=== PATIENT | male | born 1955 | race Caucasian/White ===

== ENCOUNTER 2019-02-10 15:23 | Observation (INO) | payer BC, OTHER ==
--- NOTE | 2019-02-10 15:39 | ERPHSYRPT ---
- History of Present Illness Source: patient, family ( witnessed), EMS Exam Limitations: no limitations Timing/Duration: today, hour(s) (1 hr ago onset), intermittent, sudden Severity: mild (5), moderate (1) Modifying Factors: Improves With: rest Associated Symptoms: denies symptoms Hx Tetanus, Diphtheria Vaccination/Date Given: Yes Hx Influenza Vaccination/Date Given: No Hx Pneumococcal Vaccination/Date Given: No <PITER ROPER - Last Filed: 02/10/19 16:26> <SAHIL CORTEZ - Last Filed: 02/10/19 18:54> - History of Present Illness Time Seen by Provider: 02/10/19 15:30 Physician History: patient presents by EMS with hx of seizures x 6 during past hour; perla LOC x1 for 30 seconds; no incontinence today; no trauma; no seizure meds; first seizure one year ago at [facility] in [place]- sent to [facility] and home later; no further workup; had another seizure one week ago at home with incontinence then ; no headache; no injury; no fever or recent illness; no sob (PITER ROPER) Allergies/Adverse Reactions: No Known Drug Allergies Allergy (Verified 02/10/19 15:37) Home Medications: Atenolol 25 mg PO DAILY 02/10/19 [History] Duloxetine HCl [Cymbalta] 60 mg PO DAILY 02/10/19 [History] Fenofibrate 48 mg PO DAILY 02/10/19 [History] Finasteride 5 mg [Proscar 5 MG] 5 mg PO DAILY 02/10/19 [History] Gabapentin 600 mg PO BID 02/10/19 [History] Insulin Aspart [Novolog] 100 unit SQ DAILY 02/10/19 [History] Insulin Glargine,Hum.rec.anlog [Lantus] 100 unit SQ DAILY 02/10/19 [History] Meclizine HCl 25 mg [Antivert 25 mg] 25 mg PO DAILY 02/10/19 [History] Nortriptyline HCl [Pamelor] 30 mg PO HS 02/10/19 [History] Pravastatin Sodium 80 mg PO HS 02/10/19 [History] Varenicline Tartrate [Chantix] 1 mg PO BID 02/10/19 [History] - Review of Systems Constitutional: No Symptoms Eyes: No Symptoms Ears, Nose, & Throat: No Symptoms Respiratory: No Cough, No Dyspnea, No Wheezing Cardiac: No Chest Pain, No Palpitations, No Orthopnea Abdominal/Gastrointestinal: Diarrhea (chronic), No Abdominal Pain, No Nausea, No Vomiting Genitourinary Symptoms: No Dysuria, No Hematuria, No Incontinence Musculoskeletal: No Symptoms Skin: No Symptoms Neurological: Dizziness (chronic), Headache, Seizure, Vertigo (chroninc) Psychological: No Symptoms Endocrine: Polyuria, Polydipsia, Cold Intolerance Hematologic/Lymphatic: No Symptoms Immunological/Allergic: No Symptoms <JUDSONPITER - Last Filed: 02/10/19 16:26> - Past Medical History Pertinent Past Medical History: Yes Neurological History: Stroke, TIA ENT History: No Pertinent History Cardiac History: Coronary Artery Disease, High Cholesterol, Hypertension, Myocardial Infarction (NH) Respiratory History: No Pertinent History Endocrine Medical History: Diabetes Type I Musculoskeletal History: No Pertinent History GI Medical History: No Pertinent History History: No Pertinent History Psycho-Social History: Depression Male Reproductive Disorders: No Pertinent History - Past Surgical History Past Surgical History: No - Social History Smoking Status: Current every day smoker Exposure to second hand smoke: No Alcohol Use: None Drug Use: none Patient Lives Alone: No Significant Family History: diabetes, hypertension <JUDSONPITER - Last Filed: 02/10/19 16:26> - Physical Exam General Appearance: mild distress, alert, thin Eye Exam: PERRL/EOMI, eyes nml inspection, other (fundi benign), No photophobia Ears, Nose, Throat Exam: normal ENT inspection, TMs normal, pharynx normal, moist mucous membranes Neck Exam: normal inspection, non-tender, supple, full range of motion, No meningismus, No carotid bruit, No JVD Respiratory Exam: normal breath sounds, lungs clear, airway intact, No chest tenderness, No respiratory distress, No crackles/rales, No rhonchi, No wheezing Cardiovascular Exam: regular rate/rhythm, normal heart sounds, normal peripheral pulses, bradycardia, capillary refill 2-3 sec, No murmur, No edema Gastrointestinal/Abdomen Exam: soft, normal bowel sounds, No tenderness, No guarding, No rebound, No organomegaly Rectal Exam: deferred Back Exam: normal inspection, normal range of motion, No CVA tenderness, No vertebral tenderness, No rash Extremity Exam: normal inspection, normal range of motion, No pelvis stable, No doug's sign, No pedal edema Neurologic Exam: alert, oriented x 3, cooperative, bonbon dipper II-XII nml as tested, normal mood/affect, sensation nml, No motor deficits Skin Exam: normal color, warm, dry, No rash SpO2 Interpretation: normal SpO2: 98 O2 Delivery: Room Air <ROPERPITER MAYO - Last Filed: 02/10/19 16:26> - Nursing Vital Signs Nursing Vital Signs: Initial Vital Signs Temperature 97.5 F 02/10/19 15:24 Pulse Rate 58 L 02/10/19 15:24 Respiratory Rate 16 02/10/19 15:24 Blood Pressure 182/74 02/10/19 15:24 O2 Sat by Pulse Oximetry 99 02/10/19 15:24 Pain Scale Pain Intensity 0 - Course Nursing assessment & vital signs reviewed: Yes <ROPERPITER - Last Filed: 02/10/19 16:26> - Course EKG Interpreted by Me: RATE (60/min), Left [place] Deviation, NORMAL INTERVALS, NORMAL QRS, Non-specific ST Changes - Radiology Exams Chest X-ray Interpretation: Interpreted by me, Negative - CT Exams Head CT Interpretation: Tele-radiologist Report, Other (old CVA, no acute changes) <SAHIL CORTEZ - Last Filed: 02/10/19 18:54> Ordered Tests: Active Orders 24 hr Category Date Time Status Cover Seamer STAT Care 02/10/19 15:31 Active EKG-ER Only STAT Care 02/10/19 15:31 Active IV Insertion STAT Care 02/10/19 15:31 Active Pulse Oximetry (ED) STAT Care 02/10/19 15:31 Active Re-Check Vital Signs STAT Care 02/10/19 15:31 Active Seizure Precautions -SCCHED STAT Care 02/10/19 15:31 Active CHEST 1 VIEW (PORTABLE) Stat Exams 02/10/19 15:31 Completed HEAD WITHOUT CONTRAST [CT] Stat Exams 02/10/19 15:31 Completed CBC W DIFF Stat Lab 02/10/19 15:40 Completed CK-Creatinine Phosphokinase Stat Lab 02/10/19 16:49 Completed CMP Stat Lab 02/10/19 15:40 Completed ETHYL ALCOHOL Stat Lab 02/10/19 16:49 Completed Lactic Acid Stat Lab 02/10/19 15:45 Completed MAGNESIUM Stat Lab 02/10/19 16:48 Completed PROTIME WITH INR Stat Lab 02/10/19 16:49 Completed PTT Stat Lab 02/10/19 16:49 Completed TROPONIN Q3H Lab 02/10/19 17:00 Completed TROPONIN Q3H Lab 02/10/19 20:00 Ordered TROPONIN Q3H Lab 02/10/19 23:00 Ordered TROPONIN Q3H Lab 02/11/19 02:00 Ordered TROPONIN Q3H Lab 02/11/19 05:00 Ordered UA W/RFX UR CULTURE Stat Lab 02/10/19 17:30 Completed Urine Triage Profile Stat Lab 02/10/19 17:30 Completed Medication Summary Generic Name Dose Route Start Last Admin Trade Name Freq PRN Reason Stop Dose Admin Sodium Chloride 1,000 mls @ 100 mls/hr 02/10/19 15:45 02/10/19 16:16 Sodium Chloride 0.9% 1000 Ml IV 03/12/19 15:44 100 mls/hr .Q10H ZEINA Administration Discontinued Medications Generic Name Dose Route Start Last Admin Trade Name Freq PRN Reason Stop Dose Admin Levetiracetam 1,000 mg 02/10/19 18:35 02/10/19 18:46 Keppra 500 Mg PO 02/10/19 18:36 1,000 mg NOW ONE Administration Lab/Rad Data: Laboratory Result Diagrams 02/10/19 15:40 02/10/19 15:40 Laboratory Results 02/10/19 02/10/19 02/10/19 Range/Units 17:30 17:30 17:00 WBC (4.0-10.5) K/mm3 RBC (4.1-5.6) M/mm3 Hgb (12.5-18.0) gm/dl Hct (42-50) % MCV (78-100) fl MCH (26-32) pg MCHC (32-36) g/dl RDW (11.5-14.0) % Plt Count (150-450) K/mm3 MPV (6-9.5) fl Gran % (36.0-66.0) % Eos # (Auto) (0-0.5) Absolute Lymphs (auto) (1.0-4.6) Absolute Monos (auto) (0.0-1.3) Lymphocytes % (24.0-44.0) % Monocytes % (0.0-12.0) % Eosinophils % (0.00-5.0) % Basophils % (0.0-0.4) % Absolute Granulocytes (1.4-6.9) Basophils # (0-0.4) PT (8.83-12.87) SECONDS INR (0.8-3.0) APTT (24.1-36.1) SECONDS Sodium (137-145) mmol/L Potassium (3.5-5.1) mmol/L Chloride (98-107) mmol/L Carbon Dioxide (22-30) mmol/L Anion Gap (5-15) MEQ/L BUN (9-20) mg/dL Creatinine (0.66-1.25) mg/dL Estimated GFR ML/MIN Glucose (74-106) mg/dL Lactic Acid (0.4-2.0) Calcium (8.4-10.2) mg/dL Magnesium (1.6-2.3) mg/dL Total Bilirubin (0.2-1.3) mg/dL AST (17-59) U/L ALT (0-50) U/L Alkaline Phosphatase (38-126) U/L Creatine Kinase (55-170) U/L Troponin I < 0.012 (0.000-0.034) ng/mL Serum Total Protein (6.3-8.2) g/dL Albumin (3.5-5.0) g/dL Urine Color YELLOW (YELLOW) Urine Appearance CLEAR (CLEAR) Urine pH 5.0 (5-6) Ur Specific [place] 1.023 (1.005-1.025) Urine Protein 100 (Negative) Urine Ketones NEGATIVE (NEGATIVE) Urine Blood SMALL (0-5) Kei/ul Urine Nitrite NEGATIVE (NEGATIVE) Urine Bilirubin NEGATIVE (NEGATIVE) Urine Urobilinogen NEGATIVE (0-1) mg/dL Ur Leukocyte Esterase NEGATIVE (NEGATIVE) Urine WBC (Auto) 3-5 (0-5) /HPF Urine RBC (Auto) 3-5 (0-2) /HPF U Epithel Cells (Auto) NONE (FEW) /HPF Urine Bacteria (Auto) NONE (NEGATIVE) /HPF Urine Culture Reflexed NO (NO) Urine Glucose >=500 (NEGATIVE) mg/dL Urine Opiates Level NEGATIVE (NEGATIVE) Ur Methadone NEGATIVE (NEGATIVE) Urine Barbiturates NEGATIVE (NEGATIVE) Ur Phencyclidine (PCP) NEGATIVE (NEGATIVE) Urine Amphetamine NEGATIVE (NEGATIVE) U Benzodiazepine Level NEGATIVE (NEGATIVE) Urine Cocaine NEGATIVE (NEGATIVE) Urine Marijuana (THC) NEGATIVE (NEGATIVE) Ethyl Alcohol (0-10) mg/dL 02/10/19 02/10/19 02/10/19 Range/Units 16:49 16:49 16:48 WBC (4.0-10.5) K/mm3 RBC (4.1-5.6) M/mm3 Hgb (12.5-18.0) gm/dl Hct (42-50) % MCV (78-100) fl MCH (26-32) pg MCHC (32-36) g/dl RDW (11.5-14.0) % Plt Count (150-450) K/mm3 MPV (6-9.5) fl Gran % (36.0-66.0) % Eos # (Auto) (0-0.5) Absolute Lymphs (auto) (1.0-4.6) Absolute Monos (auto) (0.0-1.3) Lymphocytes % (24.0-44.0) % Monocytes % (0.0-12.0) % Eosinophils % (0.00-5.0) % Basophils % (0.0-0.4) % Absolute Granulocytes (1.4-6.9) Basophils # (0-0.4) PT 11.2 (8.83-12.87) SECONDS INR 0.99 (0.8-3.0) APTT 34.4 (24.1-36.1) SECONDS Sodium (137-145) mmol/L Potassium (3.5-5.1) mmol/L Chloride (98-107) mmol/L Carbon Dioxide (22-30) mmol/L Anion Gap (5-15) MEQ/L BUN (9-20) mg/dL Creatinine (0.66-1.25) mg/dL Estimated GFR ML/MIN Glucose (74-106) mg/dL Lactic Acid (0.4-2.0) Calcium (8.4-10.2) mg/dL Magnesium 1.9 (1.6-2.3) mg/dL Total Bilirubin (0.2-1.3) mg/dL AST (17-59) U/L ALT (0-50) U/L Alkaline Phosphatase (38-126) U/L Creatine Kinase 52 L (55-170) U/L Troponin I (0.000-0.034) ng/mL Serum Total Protein (6.3-8.2) g/dL Albumin (3.5-5.0) g/dL Urine Color (YELLOW) Urine Appearance (CLEAR) Urine pH (5-6) Ur Specific [place] (1.005-1.025) Urine Protein (Negative) Urine Ketones (NEGATIVE) Urine Blood (0-5) Kei/ul Urine Nitrite (NEGATIVE) Urine Bilirubin (NEGATIVE) Urine Urobilinogen (0-1) mg/dL Ur Leukocyte Esterase (NEGATIVE) Urine WBC (Auto) (0-5) /HPF Urine RBC (Auto) (0-2) /HPF U Epithel Cells (Auto) (FEW) /HPF Urine Bacteria (Auto) (NEGATIVE) /HPF Urine Culture Reflexed (NO) Urine Glucose (NEGATIVE) mg/dL Urine Opiates Level (NEGATIVE) Ur Methadone (NEGATIVE) Urine Barbiturates (NEGATIVE) Ur Phencyclidine (PCP) (NEGATIVE) Urine Amphetamine (NEGATIVE) U Benzodiazepine Level (NEGATIVE) Urine Cocaine (NEGATIVE) Urine Marijuana (THC) (NEGATIVE) Ethyl Alcohol < 10 (0-10) mg/dL 02/10/19 02/10/19 02/10/19 Range/Units 15:45 15:40 15:40 WBC 8.2 (4.0-10.5) K/mm3 RBC 5.48 (4.1-5.6) M/mm3 Hgb 16.8 (12.5-18.0) gm/dl Hct 48.3 (42-50) % MCV 88.1 (78-100) fl MCH 30.7 (26-32) pg MCHC 34.8 (32-36) g/dl RDW 12.6 (11.5-14.0) % Plt Count 198 (150-450) K/mm3 MPV 9.2 (6-9.5) fl Gran % 60.2 (36.0-66.0) % Eos # (Auto) 0.27 (0-0.5) Absolute Lymphs (auto) 2.33 (1.0-4.6) Absolute Monos (auto) 0.64 (0.0-1.3) Lymphocytes % 28.3 (24.0-44.0) % Monocytes % 7.8 (0.0-12.0) % Eosinophils % 3.3 (0.00-5.0) % Basophils % 0.4 (0.0-0.4) % Absolute Granulocytes 4.97 (1.4-6.9) Basophils # 0.03 (0-0.4) PT (8.83-12.87) SECONDS INR (0.8-3.0) APTT (24.1-36.1) SECONDS Sodium 138 (137-145) mmol/L Potassium 4.2 (3.5-5.1) mmol/L Chloride 104 (98-107) mmol/L Carbon Dioxide 26 (22-30) mmol/L Anion Gap 12.3 (5-15) MEQ/L BUN 28 H (9-20) mg/dL Creatinine 1.17 (0.66-1.25) mg/dL Estimated GFR > 60.0 ML/MIN Glucose 206 H (74-106) mg/dL Lactic Acid 0.8 (0.4-2.0) Calcium 9.1 (8.4-10.2) mg/dL Magnesium (1.6-2.3) mg/dL Total Bilirubin 0.70 (0.2-1.3) mg/dL AST 29 (17-59) U/L ALT 37 (0-50) U/L Alkaline Phosphatase 73 (38-126) U/L Creatine Kinase (55-170) U/L Troponin I (0.000-0.034) ng/mL Serum Total Protein 7.5 (6.3-8.2) g/dL Albumin 4.3 (3.5-5.0) g/dL Urine Color (YELLOW) Urine Appearance (CLEAR) Urine pH (5-6) Ur Specific [place] (1.005-1.025) Urine Protein (Negative) Urine Ketones (NEGATIVE) Urine Blood (0-5) Kei/ul Urine Nitrite (NEGATIVE) Urine Bilirubin (NEGATIVE) Urine Urobilinogen (0-1) mg/dL Ur Leukocyte Esterase (NEGATIVE) Urine WBC (Auto) (0-5) /HPF Urine RBC (Auto) (0-2) /HPF U Epithel Cells (Auto) (FEW) /HPF Urine Bacteria (Auto) (NEGATIVE) /HPF Urine Culture Reflexed (NO) Urine Glucose (NEGATIVE) mg/dL Urine Opiates Level (NEGATIVE) Ur Methadone (NEGATIVE) Urine Barbiturates (NEGATIVE) Ur Phencyclidine (PCP) (NEGATIVE) Urine Amphetamine (NEGATIVE) U Benzodiazepine Level (NEGATIVE) Urine Cocaine (NEGATIVE) Urine Marijuana (THC) (NEGATIVE) Ethyl Alcohol (0-10) mg/dL reviewed (PITER ROPER) - Progress Progress: improved (after CT), re-examined (after tests) Counseled pt/family regarding: lab results, diagnosis, need for follow-up, rad results <PITER ROPER - Last Filed: 02/10/19 16:26> - Progress Discussed with Dr.: Other (Allen) Will see patient in: hospital (observation) <SAHIL CORTEZ - Last Filed: 02/10/19 18:54> - Progress Progress Note: 02/10/19 15:43 FSBS 180 at scene, will get EKG; Head CT; check lab ; monitor and recheck; at bedsdie 02/10/19 16:[address]; no more seizures; lab ok with elevated BS; CT results pending; patient comfortable; at bedside 02/10/19 16:26 Dr Cortez will assume care; report given (PITER ROPER) 02/10/19 18:50 Pt remains seizure free, reviewed his results discussed with him and his , they preferred to be transferred to [place]. We called Dr Hernandez Neurologist in [place], discussed his case and findings, current condition in details, he believes he can be observed here, he suggested to start him on PO Keppra 1000 mg BID and outpatient neurology follow up and workup. We discussed this with Dr Villa, [employer] driver, she accepted him to be admitted for observation, aptient and his notified and agreed. He was given 1000 mg PO Keppra. (SAHIL CORTEZ) <PITER ROPER - Last Filed: 02/10/19 16:26> - Departure Departure Disposition: Observation Critical Care Time: No <SAHIL CORTEZ - Last Filed: 02/10/19 18:54> - Departure Clinical Impression: Seizures Condition: Stable Referrals: BLANCA VILLEGAS [ACTIVE STAFF] - Instructions: Seizures, Adult (DC)
[2019-02-10 15:47] LABS: BASOPHIL % 0.4 % (0.0-0.4); Basophil (Absolute #) 0.03 (0-0.4); Eosinophil % 3.3 % (0.00-5.0); Eosinophil (Absolute #) 0.27 (0-0.5); Granulocyte Absolute (ANC) 4.97 (1.4-6.9); Granulocytes % 60.2 % (36.0-66.0); Hematocrit 48.3 % (42-50); Hemoglobin 16.8 gm/dl (12.5-18.0); Lymphocyte (Absolute #) 2.33 (1.0-4.6); Lymphocytes % 28.3 % (24.0-44.0); Mean Cell Volume 88.1 fl (78-100); Mean Corpuscular Hemoglobin 30.7 pg (26-32); Mean Corpuscular Hgb Concent. 34.8 g/dl (32-36); Mean Platelet Volume 9.2 fl (6-9.5); Monocyte (Absolute #) 0.64 (0.0-1.3); Monocytes % 7.8 % (0.0-12.0); Platelet Count 198 K/mm3 (150-450); Red Blood Count 5.48 M/mm3 (4.1-5.6); Red Cell Distribution Width 12.6 % (11.5-14.0); White Blood Count 8.2 K/mm3 (4.0-10.5)
[2019-02-10 15:58] LABS: ALBUMIN 4.3 g/dL (3.5-5.0); ALKALINE PHOSPHATASE 73 U/L (38-126); ANION GAP 12.3 MEQ/L (5-15); BLOOD UREA NITROGEN 28 mg/dL (9-20); CHLORIDE 104 mmol/L (98-107); Calcium 9.1 mg/dL (8.4-10.2); Carbon Dioxide 26 mmol/L (22-30); Creatinine 1 1.17 mg/dL (0.66-1.25); Glucose 206 mg/dL (74-106); Potassium 4.2 mmol/L (3.5-5.1); SGOT/AST 29 U/L (17-59); SGPT/ALT 37 U/L (0-50); SODIUM 138 mmol/L (137-145); Total Protein 7.5 g/dL (6.3-8.2)
[2019-02-10] MEDS: Sodium Chloride 0.9% 1000 ML 1,000 ML IV SCH (16:16)
--- NOTE | 2019-02-10 16:43 | XRAY ---
Exam: CT of the head without IV contrast from 02/10/2019. Comparison: CT of the head without IV contrast from 11/14/2015. Indication: 64-year-old male had 6 seizures today, history of random seizures, no priors history of surgery, no known injury. Technique: Non-IV contrast axial images were obtained through the brain. Reconstructed coronal and sagittal images were created and reviewed. Findings: The ventricles appear of unremarkable size. No no focal mass effect or midline shift is seen. No acute intracranial bleed or abnormal extra-axial fluid collection is seen. I again note a focus of chronic encephalomalacia within the high posterior left parietal lobe near the vertex which is unchanged and believed to be due to an old infarct. No new low attenuation infarct is seen. The cortical sulci are mildly prominent in a diffuse manner representing no change. Structures of posterior fossa appear unremarkable. The calvarium of the skull appears intact without fracture. Some mucosal thickening is seen within the lower aspect of the frontal sinuses on each side of midline near the frontal-ethmoid recesses as well as the posterior left ethmoid sinus. There is also moderate chronic appearing peripheral mucoperiosteal thickening within the right maxillary sinus and minimal mucosal thickening within the medial aspect of the left maxillary sinus. There is also some mild mucosal thickening along the right margin of the sphenoid sinus. These findings are suggestive of chronic sinusitis. An air-fluid level is not seen within the paranasal sinuses.. There is again deviation of the nasal septum toward the left. The mastoid air cells are clear without effusion. The middle ear cavities appear grossly unremarkable. Impression: 1. 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 2. No acute intracranial bleed or other acute intracranial process is seen. 3. Findings consistent with chronic pansinusitis. No air-fluid levels are seen on the current study. These findings are essentially unchanged from 11/14/2015. 4. No acute skull fracture is seen.
--- NOTE | 2019-02-10 16:47 | XRAY ---
Exam: AP portable chest film from 02/10/2019. Comparison: None. Indication: Seizure, history of prior stroke. Findings: The film was obtained in a mildly lordotic projection. The heart size is normal. The leela and mediastinal structures appear unremarkable. There is a 7 mm nodule at the right lung base just above the dome of the right hemidiaphragm. I cannot tell whether or not this is calcified. Comparison with any prior chest films would be helpful, although I do not have access to prior chest films at this time. The remainder the lung kohler appears clear. No infiltrates, vascular congestion, pneumothorax, or pleural fluid is seen. No acute osseous process is seen. Impression: 1. 7 mm lung nodule at right lung base of indeterminate etiology. 2. No air space infiltrates to suggest pneumonia or other acute cardiopulmonary disease is seen.
[2019-02-10 17:05] LABS: INR 0.99 (0.8-3.0); PROTIME 11.2 SECONDS (8.83-12.87)
[2019-02-10 17:07] LABS: PTT 34.4 SECONDS (24.1-36.1)
[2019-02-10 17:13] LABS: CK-Creatinine Phosphokinase 52 U/L (55-170)
[2019-02-10 17:23] LABS: ETHYL ALCOHOL < 10 mg/dL (0-10)
[2019-02-10 18:03] LABS: Appearance CLEAR (CLEAR); Bilirubin NEGATIVE (NEGATIVE); Blood SMALL Ery/ul (0-5); Glucose >=500 mg/dL (NEGATIVE); Ketones NEGATIVE (NEGATIVE); Leukocyte Esterase NEGATIVE (NEGATIVE); Nitrite NEGATIVE (NEGATIVE); Protein,Urine Dip 100 (Negative); Specific Gravity 1.023 (1.005-1.025); Urobilinogen NEGATIVE mg/dL (0-1)
[2019-02-10 18:05] LABS: Amphetamine,Urine NEGATIVE (NEGATIVE); Barbiturate,Urine NEGATIVE (NEGATIVE); Benzodiazepine,Urine NEGATIVE (NEGATIVE); Cocaine,Urine NEGATIVE (NEGATIVE); Methadone,Urine NEGATIVE (NEGATIVE); Opiate,Urine NEGATIVE (NEGATIVE); PCP,Urine NEGATIVE (NEGATIVE); THC,Urine NEGATIVE (NEGATIVE)
[2019-02-10] MEDS ORDERED: KEPPRA 500 MG PO ONE (18:35)
[2019-02-10] MEDS ORDERED: TYLENOL 325 MG PO PRN (18:54)
[2019-02-10] MEDS ORDERED: Zofran 4 MG/2 ML VIAL IV PRN (18:54)
[2019-02-10] MEDS ORDERED: DUONEB 0.5-3 MG/3 ml Neb IH PRN (18:54)
[2019-02-10] MEDS ORDERED: NovoLOG Insulin SQ PRN (18:54)
[2019-02-10] MEDS ORDERED: Sodium Chloride 0.9% 1000 ML 1,000 ML IV SCH (19:00)
[2019-02-10] MEDS ORDERED: Ativan 2 MG/1 ML VIAL IV PRN (19:31)
[2019-02-10] MEDS ORDERED: PATIENT OWN MEDICATION PO SCH (22:00)
[2019-02-10] MEDS ORDERED: NORTRIPTYLINE HCL PO SCH (22:00)
[2019-02-10] MEDS ORDERED: Proscar 5 MG PO SCH (22:00)
[2019-02-10] MEDS ORDERED: Lantus Insulin SQ SCH (22:00)
[2019-02-10] MEDS ORDERED: Lantus Insulin ONE (22:47)
[2019-02-10] MEDS: KEPPRA 500 MG PO SCH (23:27)
[2019-02-10] MEDS: NEURONTIN 300 MG PO SCH (23:28)
[2019-02-11] MEDS ORDERED: NovoLOG Insulin SQ PRN (01:23)
[2019-02-11] MEDS: Sodium Chloride 0.9% 1000 ML 1,000 ML IV SCH (03:41)
[2019-02-11 06:29] LABS: BASOPHIL % 0.3 % (0.0-0.4); Basophil (Absolute #) 0.03 (0-0.4); Eosinophil (Absolute #) 0.27 (0-0.5); Granulocyte Absolute (ANC) 5.05 (1.4-6.9); Granulocytes % 55.9 % (36.0-66.0); Hematocrit 42.5 % (42-50); Hemoglobin 14.7 gm/dl (12.5-18.0); Lymphocytes % 32.1 % (24.0-44.0); Mean Cell Volume 89.3 fl (78-100); Mean Corpuscular Hemoglobin 30.9 pg (26-32); Mean Corpuscular Hgb Concent. 34.6 g/dl (32-36); Mean Platelet Volume 9.8 fl (6-9.5); Monocyte (Absolute #) 0.79 (0.0-1.3); Monocytes % 8.7 % (0.0-12.0); Platelet Count 183 K/mm3 (150-450); Red Blood Count 4.76 M/mm3 (4.1-5.6); Red Cell Distribution Width 12.6 % (11.5-14.0)
[2019-02-11 06:51] LABS: ALBUMIN 3.4 g/dL (3.5-5.0); ALKALINE PHOSPHATASE 73 U/L (38-126); ANION GAP 10.9 MEQ/L (5-15); BLOOD UREA NITROGEN 22 mg/dL (9-20); CHLORIDE 105 mmol/L (98-107); Calcium 8.9 mg/dL (8.4-10.2); Carbon Dioxide 24 mmol/L (22-30); Glucose 356 mg/dL (74-106); Potassium 3.8 mmol/L (3.5-5.1); SGOT/AST 17 U/L (17-59); SGPT/ALT 27 U/L (0-50); SODIUM 137 mmol/L (137-145); Total Protein 6.1 g/dL (6.3-8.2)
[2019-02-11 07:26] VITALS: BP 156/72; PULSE 72; O2SAT 94
[2019-02-11] MEDS ORDERED: Lantus Insulin SQ SCH (08:00)
--- NOTE | 2019-02-11 09:18 | PCM.SSS ---
History of Present Illness - Chief Complaint Chief Complaint: Seizures History of Present Illness: is a 64 year old male male pt of Dr. Randolph with PMhx DM, hyperlipidemia, chronic bilat LE pain who was admitted through ER with a seizure yesterday. He had apparently several sz; he remembers some of them. He said it started with "something going over you" prior to some generalized shaking. witnessed several seconds of shaking, then she saw him turn white and slump over (thinks this lasted seconds too). She called son who is EMT and they had him brought to ER. Apparently last year he [facility] He was taken to [facility] in [place] and sent home after eval. He was supposed to go to neurology but refused. Per ER note there was a sz 1 wk ago with incontinence. At the scene fasting BS was 180. In ER they discussed with Dr. Brown in [place], who advised starting po keppra and following up outpatient. However pt may need to f/u with the IN in [place]. Pt has been on chantix and been doing great per , no smoking x 3d! He is supposed to stop before a visit to their [place] in [place]. However he was told to stop the chantix as sz may be a side effect. - Review of Systems Respiratory: Cough (chronic prod) Musculoskeletal: Other (leg pain chronic) Neurological: Dizziness (daily detention), Seizure All Other Systems: Reviewed and Negative Medications & Allergies Home Medications: Home Medication List Atenolol 25 mg PO DAILY 02/10/19 [History Confirmed 02/10/19] Duloxetine HCl [Cymbalta] 60 mg PO DAILY 02/10/19 [History Confirmed 02/10/19] Fenofibrate 48 mg PO DAILY 02/10/19 [History Confirmed 02/10/19] Finasteride 5 mg [Proscar 5 MG] 5 mg PO HS 02/10/19 [History Confirmed ] Gabapentin 600 mg PO BID 02/10/19 [History Confirmed 02/10/19] Gabapentin [Neurontin] 200 mg PO LUNCH 02/10/19 [History Confirmed 02/10/19] Insulin Aspart [Novolog] 3 unit SQ AC 02/10/19 [History Confirmed 02/10/19] Insulin Glargine,Hum.rec.anlog [Lantus] 50 unit SQ BID 02/10/19 [History Confirmed 02/10/19] Meclizine HCl 25 mg [Antivert 25 mg] 25 mg PO TID 02/10/19 [History Confirmed 02/10/19] Nortriptyline HCl [Pamelor] 30 mg PO HS 02/10/19 [History Confirmed 02/10/19] [place]-3 Fatty Acids/Fish Oil [Fish Oil 1,000 mg Capsule] 1,000 mg PO BID [History Confirmed 02/10/19] Pravastatin Sodium 80 mg PO HS 02/10/19 [History Confirmed 02/10/19] Levetiracetam [Keppra 500 mg ] 1,000 mg PO BID #60 tablet 02/11/19 [Rx] Allergies/Adverse Reactions: Allergies Allergy/AdvReac Type Severity Reaction Status Date / Time No Known Drug Allergies Allergy Verified 02/10/19 15:37 - Past Medical History Past Medical History: Yes Neurological History: Seizures, Stroke, TIA ENT History: No Pertinent History Cardiac History: Coronary Artery Disease, High Cholesterol, Hypertension, Myocardial Infarction (OR) Respiratory History: No Pertinent History Endocrine Medical History: Diabetes Type II Musculoskelatal History: No Pertinent History GI Medical History: No Pertinent History History: No Pertinent History Pyscho-Social History: Depression Male Reproductive Disorders: No Pertinent History - Past Surgical History Past Surgical History: No Neuro Surgical History: No Pertinent History Respiratory Surgery: No Pertinent History, Lobectomy GI Surgical History: No Pertinent History Genitourinary Surgical Hx: No Pertinent History Musculskeletal Surgical Hx: No Pertinent History Male Surgical History: No Pertinent History Other Surgical History: cardiac cath - Social History Smoking Status: Current every day smoker How long have you smoked: 50 Exposure to second hand smoke: Yes Alcohol: None Drug Use: none Significant Family History: diabetes, hypertension - Physical Exam Vital Signs: Vital Signs - 24 hr Temp Pulse Resp BP Pulse Ox 02/11/19 07:25 97.8 F 72 18 156/72 94 L 02/11/19 04:00 97.6 F 63 20 142/63 97 02/11/19 00:00 98.7 F 76 18 171/75 97 07/22/19 22:13 96 02/10/19 22:09 68 16 96 02/10/19 20:13 97.0 F 60 16 178/79 98 02/10/19 18:45 97.5 F 61 16 162/96 98 02/10/19 17:47 60 16 174/83 98 02/10/19 16:33 97.5 F 60 16 158/101 97 02/10/19 16:26 98 02/10/19 16:18 97.6 F 59 L 18 158/101 98 02/10/19 15:24 97.5 F 58 L 16 182/74 99 General Appearance: no apparent distress, alert Neurologic Exam: oriented x 3, cooperative, sourcing consultant II-XII nml as tested Eye Exam: PERRL/EOMI, eyes nml inspection Ears, Nose, Throat Exam: pharynx normal, moist mucous membranes, No tonsillar exudate Neck Exam: normal inspection, non-tender, No lymphadenopathy Respiratory Exam: normal breath sounds, lungs clear, No crackles/rales, No rhonchi, No wheezing Cardiovascular Exam: regular rate/rhythm, normal heart sounds, No murmur Gastrointestinal/Abdomen Exam: soft, normal bowel sounds, No tenderness, No distention, No mass, No guarding, No rebound Back Exam: normal inspection, No rash Extremity Exam: normal inspection, No pedal edema, No swelling Skin Exam: normal color, warm, dry, No rash Results - Labs Lab/Micro Results: Lab Results-Last 24 Hours 02/10/19 02/10/19 02/10/19 Range/Units 15:40 15:40 15:45 WBC 8.2 (4.0-10.5) K/mm3 RBC 5.48 (4.1-5.6) M/mm3 Hgb 16.8 (12.5-18.0) gm/dl Hct 48.3 (42-50) % MCV 88.1 (78-100) fl MCH 30.7 (26-32) pg MCHC 34.8 (32-36) g/dl RDW 12.6 (11.5-14.0) % Plt Count 198 (150-450) K/mm3 MPV 9.2 (6-9.5) fl Gran % 60.2 (36.0-66.0) % Eos # (Auto) 0.27 (0-0.5) Absolute Lymphs (auto) 2.33 (1.0-4.6) Absolute Monos (auto) 0.64 (0.0-1.3) Lymphocytes % 28.3 (24.0-44.0) % Monocytes % 7.8 (0.0-12.0) % Eosinophils % 3.3 (0.00-5.0) % Basophils % 0.4 (0.0-0.4) % Absolute Granulocytes 4.97 (1.4-6.9) Basophils # 0.03 (0-0.4) PT (8.83-12.87) SECONDS INR (0.8-3.0) APTT (24.1-36.1) SECONDS Sodium 138 (137-145) mmol/L Potassium 4.2 (3.5-5.1) mmol/L Chloride 104 (98-107) mmol/L Carbon Dioxide 26 (22-30) mmol/L Anion Gap 12.3 (5-15) MEQ/L BUN 28 H (9-20) mg/dL Creatinine 1.17 (0.66-1.25) mg/dL Estimated GFR > 60.0 ML/MIN Glucose 206 H (74-106) mg/dL Lactic Acid 0.8 (0.4-2.0) Calcium 9.1 (8.4-10.2) mg/dL Magnesium (1.6-2.3) mg/dL Total Bilirubin 0.70 (0.2-1.3) mg/dL AST 29 (17-59) U/L ALT 37 (0-50) U/L Alkaline Phosphatase 73 (38-126) U/L Creatine Kinase (55-170) U/L Troponin I (0.000-0.034) ng/mL Serum Total Protein 7.5 (6.3-8.2) g/dL Albumin 4.3 (3.5-5.0) g/dL Urine Color (YELLOW) Urine Appearance (CLEAR) Urine pH (5-6) Ur Specific Cornish (1.005-1.025) Urine Protein (Negative) Urine Ketones (NEGATIVE) Urine Blood (0-5) Kei/ul Urine Nitrite (NEGATIVE) Urine Bilirubin (NEGATIVE) Urine Urobilinogen (0-1) mg/dL Ur Leukocyte Esterase (NEGATIVE) Urine WBC (Auto) (0-5) /HPF Urine RBC (Auto) (0-2) /HPF U Epithel Cells (Auto) (FEW) /HPF Urine Bacteria (Auto) (NEGATIVE) /HPF Urine Culture Reflexed (NO) Urine Glucose (NEGATIVE) mg/dL Urine Opiates Level (NEGATIVE) Ur Methadone (NEGATIVE) Urine Barbiturates (NEGATIVE) Ur Phencyclidine (PCP) (NEGATIVE) Urine Amphetamine (NEGATIVE) U Benzodiazepine Level (NEGATIVE) Urine Cocaine (NEGATIVE) Urine Marijuana (THC) (NEGATIVE) Ethyl Alcohol (0-10) mg/dL 02/10/19 02/10/19 02/10/19 Range/Units 16:48 16:49 16:49 WBC (4.0-10.5) K/mm3 RBC (4.1-5.6) M/mm3 Hgb (12.5-18.0) gm/dl Hct (42-50) % MCV (78-100) fl MCH (26-32) pg MCHC (32-36) g/dl RDW (11.5-14.0) % Plt Count (150-450) K/mm3 MPV (6-9.5) fl Gran % (36.0-66.0) % Eos # (Auto) (0-0.5) Absolute Lymphs (auto) (1.0-4.6) Absolute Monos (auto) (0.0-1.3) Lymphocytes % (24.0-44.0) % Monocytes % (0.0-12.0) % Eosinophils % (0.00-5.0) % Basophils % (0.0-0.4) % Absolute Granulocytes (1.4-6.9) Basophils # (0-0.4) PT 11.2 (8.83-12.87) SECONDS INR 0.99 (0.8-3.0) APTT 34.4 (24.1-36.1) SECONDS Sodium (137-145) mmol/L Potassium (3.5-5.1) mmol/L Chloride (98-107) mmol/L Carbon Dioxide (22-30) mmol/L Anion Gap (5-15) MEQ/L BUN (9-20) mg/dL Creatinine (0.66-1.25) mg/dL Estimated GFR ML/MIN Glucose (74-106) mg/dL Lactic Acid (0.4-2.0) Calcium (8.4-10.2) mg/dL Magnesium 1.9 (1.6-2.3) mg/dL Total Bilirubin (0.2-1.3) mg/dL AST (17-59) U/L ALT (0-50) U/L Alkaline Phosphatase (38-126) U/L Creatine Kinase 52 L (55-170) U/L Troponin I (0.000-0.034) ng/mL Serum Total Protein (6.3-8.2) g/dL Albumin (3.5-5.0) g/dL Urine Color (YELLOW) Urine Appearance (CLEAR) Urine pH (5-6) Ur Specific Cornish (1.005-1.025) Urine Protein (Negative) Urine Ketones (NEGATIVE) Urine Blood (0-5) Kei/ul Urine Nitrite (NEGATIVE) Urine Bilirubin (NEGATIVE) Urine Urobilinogen (0-1) mg/dL Ur Leukocyte Esterase (NEGATIVE) Urine WBC (Auto) (0-5) /HPF Urine RBC (Auto) (0-2) /HPF U Epithel Cells (Auto) (FEW) /HPF Urine Bacteria (Auto) (NEGATIVE) /HPF Urine Culture Reflexed (NO) Urine Glucose (NEGATIVE) mg/dL Urine Opiates Level (NEGATIVE) Ur Methadone (NEGATIVE) Urine Barbiturates (NEGATIVE) Ur Phencyclidine (PCP) (NEGATIVE) Urine Amphetamine (NEGATIVE) U Benzodiazepine Level (NEGATIVE) Urine Cocaine (NEGATIVE) Urine Marijuana (THC) (NEGATIVE) Ethyl Alcohol < 10 (0-10) mg/dL 02/10/19 02/10/19 02/10/19 Range/Units 17:00 17:30 17:30 WBC (4.0-10.5) K/mm3 RBC (4.1-5.6) M/mm3 Hgb (12.5-18.0) gm/dl Hct (42-50) % MCV (78-100) fl MCH (26-32) pg MCHC (32-36) g/dl RDW (11.5-14.0) % Plt Count (150-450) K/mm3 MPV (6-9.5) fl Gran % (36.0-66.0) % Eos # (Auto) (0-0.5) Absolute Lymphs (auto) (1.0-4.6) Absolute Monos (auto) (0.0-1.3) Lymphocytes % (24.0-44.0) % Monocytes % (0.0-12.0) % Eosinophils % (0.00-5.0) % Basophils % (0.0-0.4) % Absolute Granulocytes (1.4-6.9) Basophils # (0-0.4) PT (8.83-12.87) SECONDS INR (0.8-3.0) APTT (24.1-36.1) SECONDS Sodium (137-145) mmol/L Potassium (3.5-5.1) mmol/L Chloride (98-107) mmol/L Carbon Dioxide (22-30) mmol/L Anion Gap (5-15) MEQ/L BUN (9-20) mg/dL Creatinine (0.66-1.25) mg/dL Estimated GFR ML/MIN Glucose (74-106) mg/dL Lactic Acid (0.4-2.0) Calcium (8.4-10.2) mg/dL Magnesium (1.6-2.3) mg/dL Total Bilirubin (0.2-1.3) mg/dL AST (17-59) U/L ALT (0-50) U/L Alkaline Phosphatase (38-126) U/L Creatine Kinase (55-170) U/L Troponin I < 0.012 (0.000-0.034) ng/mL Serum Total Protein (6.3-8.2) g/dL Albumin (3.5-5.0) g/dL Urine Color YELLOW (YELLOW) Urine Appearance CLEAR (CLEAR) Urine pH 5.0 (5-6) Ur Specific Cornish 1.023 (1.005-1.025) Urine Protein 100 (Negative) Urine Ketones NEGATIVE (NEGATIVE) Urine Blood SMALL (0-5) Kei/ul Urine Nitrite NEGATIVE (NEGATIVE) Urine Bilirubin NEGATIVE (NEGATIVE) Urine Urobilinogen NEGATIVE (0-1) mg/dL Ur Leukocyte Esterase NEGATIVE (NEGATIVE) Urine WBC (Auto) 3-5 (0-5) /HPF Urine RBC (Auto) 3-5 (0-2) /HPF U Epithel Cells (Auto) NONE (FEW) /HPF Urine Bacteria (Auto) NONE (NEGATIVE) /HPF Urine Culture Reflexed NO (NO) Urine Glucose >=500 (NEGATIVE) mg/dL Urine Opiates Level NEGATIVE (NEGATIVE) Ur Methadone NEGATIVE (NEGATIVE) Urine Barbiturates NEGATIVE (NEGATIVE) Ur Phencyclidine (PCP) NEGATIVE (NEGATIVE) Urine Amphetamine NEGATIVE (NEGATIVE) U Benzodiazepine Level NEGATIVE (NEGATIVE) Urine Cocaine NEGATIVE (NEGATIVE) Urine Marijuana (THC) NEGATIVE (NEGATIVE) Ethyl Alcohol (0-10) mg/dL 02/10/19 02/10/19 02/11/19 Range/Units 20:07 23:08 02:10 WBC (4.0-10.5) K/mm3 RBC (4.1-5.6) M/mm3 Hgb (12.5-18.0) gm/dl Hct (42-50) % MCV (78-100) fl MCH (26-32) pg MCHC (32-36) g/dl RDW (11.5-14.0) % Plt Count (150-450) K/mm3 MPV (6-9.5) fl Gran % (36.0-66.0) % Eos # (Auto) (0-0.5) Absolute Lymphs (auto) (1.0-4.6) Absolute Monos (auto) (0.0-1.3) Lymphocytes % (24.0-44.0) % Monocytes % (0.0-12.0) % Eosinophils % (0.00-5.0) % Basophils % (0.0-0.4) % Absolute Granulocytes (1.4-6.9) Basophils # (0-0.4) PT (8.83-12.87) SECONDS INR (0.8-3.0) APTT (24.1-36.1) SECONDS Sodium (137-145) mmol/L Potassium (3.5-5.1) mmol/L Chloride (98-107) mmol/L Carbon Dioxide (22-30) mmol/L Anion Gap (5-15) MEQ/L BUN (9-20) mg/dL Creatinine (0.66-1.25) mg/dL Estimated GFR ML/MIN Glucose (74-106) mg/dL Lactic Acid (0.4-2.0) Calcium (8.4-10.2) mg/dL Magnesium (1.6-2.3) mg/dL Total Bilirubin (0.2-1.3) mg/dL AST (17-59) U/L ALT (0-50) U/L Alkaline Phosphatase (38-126) U/L Creatine Kinase (55-170) U/L Troponin I < 0.012 < 0.012 < 0.012 (0.000-0.034) ng/mL Serum Total Protein (6.3-8.2) g/dL Albumin (3.5-5.0) g/dL Urine Color (YELLOW) Urine Appearance (CLEAR) Urine pH (5-6) Ur Specific Cornish (1.005-1.025) Urine Protein (Negative) Urine Ketones (NEGATIVE) Urine Blood (0-5) Kei/ul Urine Nitrite (NEGATIVE) Urine Bilirubin (NEGATIVE) Urine Urobilinogen (0-1) mg/dL Ur Leukocyte Esterase (NEGATIVE) Urine WBC (Auto) (0-5) /HPF Urine RBC (Auto) (0-2) /HPF U Epithel Cells (Auto) (FEW) /HPF Urine Bacteria (Auto) (NEGATIVE) /HPF Urine Culture Reflexed (NO) Urine Glucose (NEGATIVE) mg/dL Urine Opiates Level (NEGATIVE) Ur Methadone (NEGATIVE) Urine Barbiturates (NEGATIVE) Ur Phencyclidine (PCP) (NEGATIVE) Urine Amphetamine (NEGATIVE) U Benzodiazepine Level (NEGATIVE) Urine Cocaine (NEGATIVE) Urine Marijuana (THC) (NEGATIVE) Ethyl Alcohol (0-10) mg/dL 02/11/19 02/11/19 02/11/19 Range/Units 05:15 05:15 05:15 WBC 9.0 (4.0-10.5) K/mm3 RBC 4.76 (4.1-5.6) M/mm3 Hgb 14.7 (12.5-18.0) gm/dl Hct 42.5 (42-50) % MCV 89.3 (78-100) fl MCH 30.9 (26-32) pg MCHC 34.6 (32-36) g/dl RDW 12.6 (11.5-14.0) % Plt Count 183 (150-450) K/mm3 MPV 9.8 H (6-9.5) fl Gran % 55.9 (36.0-66.0) % Eos # (Auto) 0.27 (0-0.5) Absolute Lymphs (auto) 2.90 (1.0-4.6) Absolute Monos (auto) 0.79 (0.0-1.3) Lymphocytes % 32.1 (24.0-44.0) % Monocytes % 8.7 (0.0-12.0) % Eosinophils % 3.0 (0.00-5.0) % Basophils % 0.3 (0.0-0.4) % Absolute Granulocytes 5.05 (1.4-6.9) Basophils # 0.03 (0-0.4) PT (8.83-12.87) SECONDS INR (0.8-3.0) APTT (24.1-36.1) SECONDS Sodium 137 (137-145) mmol/L Potassium 3.8 (3.5-5.1) mmol/L Chloride 105 (98-107) mmol/L Carbon Dioxide 24 (22-30) mmol/L Anion Gap 10.9 (5-15) MEQ/L BUN 22 H (9-20) mg/dL Creatinine 1.20 (0.66-1.25) mg/dL Estimated GFR > 60.0 ML/MIN Glucose 356 H (74-106) mg/dL Lactic Acid (0.4-2.0) Calcium 8.9 (8.4-10.2) mg/dL Magnesium (1.6-2.3) mg/dL Total Bilirubin 0.40 (0.2-1.3) mg/dL AST 17 (17-59) U/L ALT 27 (0-50) U/L Alkaline Phosphatase 73 (38-126) U/L Creatine Kinase (55-170) U/L Troponin I < 0.012 (0.000-0.034) ng/mL Serum Total Protein 6.1 L (6.3-8.2) g/dL Albumin 3.4 L (3.5-5.0) g/dL Urine Color (YELLOW) Urine Appearance (CLEAR) Urine pH (5-6) Ur Specific Cornish (1.005-1.025) Urine Protein (Negative) Urine Ketones (NEGATIVE) Urine Blood (0-5) Kei/ul Urine Nitrite (NEGATIVE) Urine Bilirubin (NEGATIVE) Urine Urobilinogen (0-1) mg/dL Ur Leukocyte Esterase (NEGATIVE) Urine WBC (Auto) (0-5) /HPF Urine RBC (Auto) (0-2) /HPF U Epithel Cells (Auto) (FEW) /HPF Urine Bacteria (Auto) (NEGATIVE) /HPF Urine Culture Reflexed (NO) Urine Glucose (NEGATIVE) mg/dL Urine Opiates Level (NEGATIVE) Ur Methadone (NEGATIVE) Urine Barbiturates (NEGATIVE) Ur Phencyclidine (PCP) (NEGATIVE) Urine Amphetamine (NEGATIVE) U Benzodiazepine Level (NEGATIVE) Urine Cocaine (NEGATIVE) Urine Marijuana (THC) (NEGATIVE) Ethyl Alcohol (0-10) mg/dL - Radiology Impressions Radiology Exams & Impressions: Radiology Procedures Category Date Time Status CHEST 1 VIEW (PORTABLE) Stat Exams 02/10/19 15:31 Completed HEAD WITHOUT CONTRAST [CT] Stat Exams 02/10/19 15:31 Completed Assessment/Plan (1) Seizures Current Visit: Yes Status: Acute Assessment & Plan: Home on po keppra. Needs to f/u with neurology; since [facility], he is concerned he may need a f/u with the clinic in [place] or [place]. Discharge planning to f/u on that. Code(s): R56.9 - UNSPECIFIED CONVULSIONS (2) Diabetes mellitus Current Visit: Yes Status: Chronic Qualifiers: Diabetes mellitus type: type 2 Diabetes mellitus exterminator helper termite insulin use: with exterminator helper termite use Diabetes mellitus complication status: with neurologic complications Diabetes mellitus complication detail: with polyneuropathy Qualified Code(s): E11.42 - Type 2 diabetes mellitus with diabetic polyneuropathy; Z79.4 - superintendent marine oil terminal (current) use of insulin Code(s): E11.9 - TYPE 2 DIABETES MELLITUS WITHOUT COMPLICATIONS (3) Hyperlipidemia Current Visit: Yes Status: Chronic Qualifiers: Hyperlipidemia type: unspecified Qualified Code(s): E78.5 - Hyperlipidemia , unspecified Code(s): E78.5 - HYPERLIPIDEMIA, UNSPECIFIED (4) Chronic leg pain Current Visit: Yes Status: Chronic Qualifiers: Laterality: bilateral Qualified Code(s): M79.604 - Pain in right leg; M79.605 - Pain in left leg; G89.29 - Other chronic pain Code(s): M79.606 - PAIN IN LEG, UNSPECIFIED; G89.29 - OTHER CHRONIC PAIN Hospital Summary - Hospital Course Hospital Course: is a 64 year old male male pt of Dr. Randolph with PMhx DM, hyperlipidemia, chronic bilat LE pain who was admitted through ER with a seizure yesterday. He had apparently several sz; he remembers some of them. He said it started with "something going over you" prior to some generalized shaking. witnessed several seconds of shaking, then she saw him turn white and slump over (thinks this lasted seconds too). She called son who is EMT and they had him brought to ER. Apparently last year he had an [facility] He was taken to [facility] in [place] and sent home after eval. He was supposed to go to neurology but refused. Per ER note there was a sz 1 wk ago with incontinence. At the scene fasting BS was 180. In ER they discussed with Dr. Brown in [place], who advised starting po keppra and following up outpatient. However pt may need to f/u with the IN in [place]. Pt has been on chantix and been doing great per , no smoking x 3d! He is supposed to stop before a visit to their daughter in [place]. However he was told to stop the chantix as sz may be a side effect. - Vitals & Intake/Output Vital Signs: Vital Signs Temperature 97.8 F 02/11/19 07:25 Pulse Rate 72 02/11/19 07:25 Respiratory Rate 18 02/11/19 07:25 Blood Pressure 156/72 02/11/19 07:25 O2 Sat by Pulse Oximetry 94 L 02/11/19 07:25 Intake & Output: Intake & Output 02/08/19 02/09/19 02/10/19 02/11/19 11:59 11:59 11:59 11:59 Intake Total 900 Output Total 900 Balance 0 Weight 82.8 kg - Lab Result Diagrams: 02/11/19 05:15 02/11/19 05:15 Lab Results-Last 24 Hrs: Lab Results-Last 24 Hours 02/10/19 02/10/19 02/10/19 Range/Units 15:40 15:40 15:45 WBC 8.2 (4.0-10.5) K/mm3 RBC 5.48 (4.1-5.6) M/mm3 Hgb 16.8 (12.5-18.0) gm/dl Hct 48.3 (42-50) % MCV 88.1 (78-100) fl MCH 30.7 (26-32) pg MCHC 34.8 (32-36) g/dl RDW 12.6 (11.5-14.0) % Plt Count 198 (150-450) K/mm3 MPV 9.2 (6-9.5) fl Gran % 60.2 (36.0-66.0) % Eos # (Auto) 0.27 (0-0.5) Absolute Lymphs (auto) 2.33 (1.0-4.6) Absolute Monos (auto) 0.64 (0.0-1.3) Lymphocytes % 28.3 (24.0-44.0) % Monocytes % 7.8 (0.0-12.0) % Eosinophils % 3.3 (0.00-5.0) % Basophils % 0.4 (0.0-0.4) % Absolute Granulocytes 4.97 (1.4-6.9) Basophils # 0.03 (0-0.4) PT (8.83-12.87) SECONDS INR (0.8-3.0) APTT (24.1-36.1) SECONDS Sodium 138 (137-145) mmol/L Potassium 4.2 (3.5-5.1) mmol/L Chloride 104 (98-107) mmol/L Carbon Dioxide 26 (22-30) mmol/L Anion Gap 12.3 (5-15) MEQ/L BUN 28 H (9-20) mg/dL Creatinine 1.17 (0.66-1.25) mg/dL Estimated GFR > 60.0 ML/MIN Glucose 206 H (74-106) mg/dL Lactic Acid 0.8 (0.4-2.0) Calcium 9.1 (8.4-10.2) mg/dL Magnesium (1.6-2.3) mg/dL Total Bilirubin 0.70 (0.2-1.3) mg/dL AST 29 (17-59) U/L ALT 37 (0-50) U/L Alkaline Phosphatase 73 (38-126) U/L Creatine Kinase (55-170) U/L Troponin I (0.000-0.034) ng/mL Serum Total Protein 7.5 (6.3-8.2) g/dL Albumin 4.3 (3.5-5.0) g/dL Urine Color (YELLOW) Urine Appearance (CLEAR) Urine pH (5-6) Ur Specific Cornish (1.005-1.025) Urine Protein (Negative) Urine Ketones (NEGATIVE) Urine Blood (0-5) Kei/ul Urine Nitrite (NEGATIVE) Urine Bilirubin (NEGATIVE) Urine Urobilinogen (0-1) mg/dL Ur Leukocyte Esterase (NEGATIVE) Urine WBC (Auto) (0-5) /HPF Urine RBC (Auto) (0-2) /HPF U Epithel Cells (Auto) (FEW) /HPF Urine Bacteria (Auto) (NEGATIVE) /HPF Urine Culture Reflexed (NO) Urine Glucose (NEGATIVE) mg/dL Urine Opiates Level (NEGATIVE) Ur Methadone (NEGATIVE) Urine Barbiturates (NEGATIVE) Ur Phencyclidine (PCP) (NEGATIVE) Urine Amphetamine (NEGATIVE) U Benzodiazepine Level (NEGATIVE) Urine Cocaine (NEGATIVE) Urine Marijuana (THC) (NEGATIVE) Ethyl Alcohol (0-10) mg/dL 02/10/19 02/10/19 02/10/19 Range/Units 16:48 16:49 16:49 WBC (4.0-10.5) K/mm3 RBC (4.1-5.6) M/mm3 Hgb (12.5-18.0) gm/dl Hct (42-50) % MCV (78-100) fl MCH (26-32) pg MCHC (32-36) g/dl RDW (11.5-14.0) % Plt Count (150-450) K/mm3 MPV (6-9.5) fl Gran % (36.0-66.0) % Eos # (Auto) (0-0.5) Absolute Lymphs (auto) (1.0-4.6) Absolute Monos (auto) (0.0-1.3) Lymphocytes % (24.0-44.0) % Monocytes % (0.0-12.0) % Eosinophils % (0.00-5.0) % Basophils % (0.0-0.4) % Absolute Granulocytes (1.4-6.9) Basophils # (0-0.4) PT 11.2 (8.83-12.87) SECONDS INR 0.99 (0.8-3.0) APTT 34.4 (24.1-36.1) SECONDS Sodium (137-145) mmol/L Potassium (3.5-5.1) mmol/L Chloride (98-107) mmol/L Carbon Dioxide (22-30) mmol/L Anion Gap (5-15) MEQ/L BUN (9-20) mg/dL Creatinine (0.66-1.25) mg/dL Estimated GFR ML/MIN Glucose (74-106) mg/dL Lactic Acid (0.4-2.0) Calcium (8.4-10.2) mg/dL Magnesium 1.9 (1.6-2.3) mg/dL Total Bilirubin (0.2-1.3) mg/dL AST (17-59) U/L ALT (0-50) U/L Alkaline Phosphatase (38-126) U/L Creatine Kinase 52 L (55-170) U/L Troponin I (0.000-0.034) ng/mL Serum Total Protein (6.3-8.2) g/dL Albumin (3.5-5.0) g/dL Urine Color (YELLOW) Urine Appearance (CLEAR) Urine pH (5-6) Ur Specific Cornish (1.005-1.025) Urine Protein (Negative) Urine Ketones (NEGATIVE) Urine Blood (0-5) Kei/ul Urine Nitrite (NEGATIVE) Urine Bilirubin (NEGATIVE) Urine Urobilinogen (0-1) mg/dL Ur Leukocyte Esterase (NEGATIVE) Urine WBC (Auto) (0-5) /HPF Urine RBC (Auto) (0-2) /HPF U Epithel Cells (Auto) (FEW) /HPF Urine Bacteria (Auto) (NEGATIVE) /HPF Urine Culture Reflexed (NO) Urine Glucose (NEGATIVE) mg/dL Urine Opiates Level (NEGATIVE) Ur Methadone (NEGATIVE) Urine Barbiturates (NEGATIVE) Ur Phencyclidine (PCP) (NEGATIVE) Urine Amphetamine (NEGATIVE) U Benzodiazepine Level (NEGATIVE) Urine Cocaine (NEGATIVE) Urine Marijuana (THC) (NEGATIVE) Ethyl Alcohol < 10 (0-10) mg/dL 02/10/19 02/10/19 02/10/19 Range/Units 17:00 17:30 17:30 WBC (4.0-10.5) K/mm3 RBC (4.1-5.6) M/mm3 Hgb (12.5-18.0) gm/dl Hct (42-50) % MCV (78-100) fl MCH (26-32) pg MCHC (32-36) g/dl RDW (11.5-14.0) % Plt Count (150-450) K/mm3 MPV (6-9.5) fl Gran % (36.0-66.0) % Eos # (Auto) (0-0.5) Absolute Lymphs (auto) (1.0-4.6) Absolute Monos (auto) (0.0-1.3) Lymphocytes % (24.0-44.0) % Monocytes % (0.0-12.0) % Eosinophils % (0.00-5.0) % Basophils % (0.0-0.4) % Absolute Granulocytes (1.4-6.9) Basophils # (0-0.4) PT (8.83-12.87) SECONDS INR (0.8-3.0) APTT (24.1-36.1) SECONDS Sodium (137-145) mmol/L Potassium (3.5-5.1) mmol/L Chloride (98-107) mmol/L Carbon Dioxide (22-30) mmol/L Anion Gap (5-15) MEQ/L BUN (9-20) mg/dL Creatinine (0.66-1.25) mg/dL Estimated GFR ML/MIN Glucose (74-106) mg/dL Lactic Acid (0.4-2.0) Calcium (8.4-10.2) mg/dL Magnesium (1.6-2.3) mg/dL Total Bilirubin (0.2-1.3) mg/dL AST (17-59) U/L ALT (0-50) U/L Alkaline Phosphatase (38-126) U/L Creatine Kinase (55-170) U/L Troponin I < 0.012 (0.000-0.034) ng/mL Serum Total Protein (6.3-8.2) g/dL Albumin (3.5-5.0) g/dL Urine Color YELLOW (YELLOW) Urine Appearance CLEAR (CLEAR) Urine pH 5.0 (5-6) Ur Specific Cornish 1.023 (1.005-1.025) Urine Protein 100 (Negative) Urine Ketones NEGATIVE (NEGATIVE) Urine Blood SMALL (0-5) Kei/ul Urine Nitrite NEGATIVE (NEGATIVE) Urine Bilirubin NEGATIVE (NEGATIVE) Urine Urobilinogen NEGATIVE (0-1) mg/dL Ur Leukocyte Esterase NEGATIVE (NEGATIVE) Urine WBC (Auto) 3-5 (0-5) /HPF Urine RBC (Auto) 3-5 (0-2) /HPF U Epithel Cells (Auto) NONE (FEW) /HPF Urine Bacteria (Auto) NONE (NEGATIVE) /HPF Urine Culture Reflexed NO (NO) Urine Glucose >=500 (NEGATIVE) mg/dL Urine Opiates Level NEGATIVE (NEGATIVE) Ur Methadone NEGATIVE (NEGATIVE) Urine Barbiturates NEGATIVE (NEGATIVE) Ur Phencyclidine (PCP) NEGATIVE (NEGATIVE) Urine Amphetamine NEGATIVE (NEGATIVE) U Benzodiazepine Level NEGATIVE (NEGATIVE) Urine Cocaine NEGATIVE (NEGATIVE) Urine Marijuana (THC) NEGATIVE (NEGATIVE) Ethyl Alcohol (0-10) mg/dL 02/10/19 02/10/19 02/11/19 Range/Units 20:07 23:08 02:10 WBC (4.0-10.5) K/mm3 RBC (4.1-5.6) M/mm3 Hgb (12.5-18.0) gm/dl Hct (42-50) % MCV (78-100) fl MCH (26-32) pg MCHC (32-36) g/dl RDW (11.5-14.0) % Plt Count (150-450) K/mm3 MPV (6-9.5) fl Gran % (36.0-66.0) % Eos # (Auto) (0-0.5) Absolute Lymphs (auto) (1.0-4.6) Absolute Monos (auto) (0.0-1.3) Lymphocytes % (24.0-44.0) % Monocytes % (0.0-12.0) % Eosinophils % (0.00-5.0) % Basophils % (0.0-0.4) % Absolute Granulocytes (1.4-6.9) Basophils # (0-0.4) PT (8.83-12.87) SECONDS INR (0.8-3.0) APTT (24.1-36.1) SECONDS Sodium (137-145) mmol/L Potassium (3.5-5.1) mmol/L Chloride (98-107) mmol/L Carbon Dioxide (22-30) mmol/L Anion Gap (5-15) MEQ/L BUN (9-20) mg/dL Creatinine (0.66-1.25) mg/dL Estimated GFR ML/MIN Glucose (74-106) mg/dL Lactic Acid (0.4-2.0) Calcium (8.4-10.2) mg/dL Magnesium (1.6-2.3) mg/dL Total Bilirubin (0.2-1.3) mg/dL AST (17-59) U/L ALT (0-50) U/L Alkaline Phosphatase (38-126) U/L Creatine Kinase (55-170) U/L Troponin I < 0.012 < 0.012 < 0.012 (0.000-0.034) ng/mL Serum Total Protein (6.3-8.2) g/dL Albumin (3.5-5.0) g/dL Urine Color (YELLOW) Urine Appearance (CLEAR) Urine pH (5-6) Ur Specific [place] (1.005-1.025) Urine Protein (Negative) Urine Ketones (NEGATIVE) Urine Blood (0-5) Kei/ul Urine Nitrite (NEGATIVE) Urine Bilirubin (NEGATIVE) Urine Urobilinogen (0-1) mg/dL Ur Leukocyte Esterase (NEGATIVE) Urine WBC (Auto) (0-5) /HPF Urine RBC (Auto) (0-2) /HPF U Epithel Cells (Auto) (FEW) /HPF Urine Bacteria (Auto) (NEGATIVE) /HPF Urine Culture Reflexed (NO) Urine Glucose (NEGATIVE) mg/dL Urine Opiates Level (NEGATIVE) Ur Methadone (NEGATIVE) Urine Barbiturates (NEGATIVE) Ur Phencyclidine (PCP) (NEGATIVE) Urine Amphetamine (NEGATIVE) U Benzodiazepine Level (NEGATIVE) Urine Cocaine (NEGATIVE) Urine Marijuana (THC) (NEGATIVE) Ethyl Alcohol (0-10) mg/dL 02/11/19 02/11/19 02/11/19 Range/Units 05:15 05:15 05:15 WBC 9.0 (4.0-10.5) K/mm3 RBC 4.76 (4.1-5.6) M/mm3 Hgb 14.7 (12.5-18.0) gm/dl Hct 42.5 (42-50) % MCV 89.3 (78-100) fl MCH 30.9 (26-32) pg MCHC 34.6 (32-36) g/dl RDW 12.6 (11.5-14.0) % Plt Count 183 (150-450) K/mm3 MPV 9.8 H (6-9.5) fl Gran % 55.9 (36.0-66.0) % Eos # (Auto) 0.27 (0-0.5) Absolute Lymphs (auto) 2.90 (1.0-4.6) Absolute Monos (auto) 0.79 (0.0-1.3) Lymphocytes % 32.1 (24.0-44.0) % Monocytes % 8.7 (0.0-12.0) % Eosinophils % 3.0 (0.00-5.0) % Basophils % 0.3 (0.0-0.4) % Absolute Granulocytes 5.05 (1.4-6.9) Basophils # 0.03 (0-0.4) PT (8.83-12.87) SECONDS INR (0.8-3.0) APTT (24.1-36.1) SECONDS Sodium 137 (137-145) mmol/L Potassium 3.8 (3.5-5.1) mmol/L Chloride 105 (98-107) mmol/L Carbon Dioxide 24 (22-30) mmol/L Anion Gap 10.9 (5-15) MEQ/L BUN 22 H (9-20) mg/dL Creatinine 1.20 (0.66-1.25) mg/dL Estimated GFR > 60.0 ML/MIN Glucose 356 H (74-106) mg/dL Lactic Acid (0.4-2.0) Calcium 8.9 (8.4-10.2) mg/dL Magnesium (1.6-2.3) mg/dL Total Bilirubin 0.40 (0.2-1.3) mg/dL AST 17 (17-59) U/L ALT 27 (0-50) U/L Alkaline Phosphatase 73 (38-126) U/L Creatine Kinase (55-170) U/L Troponin I < 0.012 (0.000-0.034) ng/mL Serum Total Protein 6.1 L (6.3-8.2) g/dL Albumin 3.4 L (3.5-5.0) g/dL Urine Color (YELLOW) Urine Appearance (CLEAR) Urine pH (5-6) Ur Specific [place] (1.005-1.025) Urine Protein (Negative) Urine Ketones (NEGATIVE) Urine Blood (0-5) Kei/ul Urine Nitrite (NEGATIVE) Urine Bilirubin (NEGATIVE) Urine Urobilinogen (0-1) mg/dL Ur Leukocyte Esterase (NEGATIVE) Urine WBC (Auto) (0-5) /HPF Urine RBC (Auto) (0-2) /HPF U Epithel Cells (Auto) (FEW) /HPF Urine Bacteria (Auto) (NEGATIVE) /HPF Urine Culture Reflexed (NO) Urine Glucose (NEGATIVE) mg/dL Urine Opiates Level (NEGATIVE) Ur Methadone (NEGATIVE) Urine Barbiturates (NEGATIVE) Ur Phencyclidine (PCP) (NEGATIVE) Urine Amphetamine (NEGATIVE) U Benzodiazepine Level (NEGATIVE) Urine Cocaine (NEGATIVE) Urine Marijuana (THC) (NEGATIVE) Ethyl Alcohol (0-10) mg/dL - Radiology Exams Ordered Rad Exams-Entire Visit: Radiology Procedures Category Date Time Status CHEST 1 VIEW (PORTABLE) Stat Exams 02/10/19 15:31 Completed HEAD WITHOUT CONTRAST [CT] Stat Exams 02/10/19 15:31 Completed - Procedures and Test Procedures and Tests throughout Hospitalization: Therapy Orders & Screens 02/10/19 20:47 Smoking Cessation Education ONCE Comment: Diagnosis: Seizures Smoking Status: Current every day smoker How long have you smoked: 50 Have you smoked in the past 12 months: Yes Approximately how many cigarettes per day: 20 Do you dip or chew tobacco: No 02/10/19 22:09 Respiratory Therapy Consult ONCE Comment: Reason For Exam: Diagnosis: Seizures - Discharge Disposition: Home, Self-Care Condition: Stable Prescriptions: New Levetiracetam [Keppra 500 mg ] 1,000 mg PO BID #60 tablet Continue Duloxetine HCl [Cymbalta] 60 mg PO DAILY Fenofibrate 48 mg PO DAILY Atenolol 25 mg PO DAILY Pravastatin Sodium 80 mg PO HS Gabapentin 600 mg PO BID Insulin Aspart [Novolog] 3 unit SQ AC Finasteride 5 mg [Proscar 5 MG] 5 mg PO HS Nortriptyline HCl [Pamelor] 30 mg PO HS Insulin Glargine,Hum.rec.anlog [Lantus] 50 unit SQ BID Meclizine HCl 25 mg [Antivert 25 mg] 25 mg PO TID Gabapentin [Neurontin] 200 mg PO LUNCH [place]-3 Fatty Acids/Fish Oil [Fish Oil 1,000 mg Capsule] 1,000 mg PO BID Follow up with: [facility]OSP[facility],'[facility] [Primary Care Provider] - 1 Week
[2019-02-11] MEDS: KEPPRA 500 MG PO SCH (09:23)
[2019-02-11] MEDS: NEURONTIN 300 MG PO SCH (09:24)
[2019-02-11] MEDS ORDERED: TENORMIN 50 MG PO SCH (10:00)
[2019-02-11] MEDS ORDERED: Tricor 145 MG PO SCH (10:00)
[2019-02-11] MEDS ORDERED: Cymbalta 30 MG Capsule PO SCH (10:00)
[2019-02-11] MEDS ORDERED: ANTIVERT 25 MG PO PRN (10:00)
[2019-02-11] MEDS ORDERED: NON-FORMULARY ITEM (Duloxetine Hcl [Cymbalta] 60 MG) PO SCH (10:00)
[2019-02-11] MEDS ORDERED: PATIENT OWN MEDICATION PO SCH (10:00)
[2019-02-11] MEDS ORDERED: FENOFIBRATE 48 MG PO SCH (10:00)
[2019-02-11] MEDS ORDERED: Neurontin 100 MG PO SCH (12:00)
[2019-02-11] MEDS ORDERED: ZOCOR 20MG PO SCH (22:00)
== END 2019-02-11 10:05 | disposition home or self-care (01) ==
LOC: ED 15:23 → MED SURG 19:27
PROVIDERS: ADMIT Family Medicine; ATTEND Family Medicine
DX: R56.9 Unspecified convulsions (principal); E11.9 Type 2 diabetes mellitus without complications; E78.5 Hyperlipidemia, unspecified; R42 Dizziness and giddiness; I10 Essential (primary) hypertension; I25.10 Atherosclerotic heart disease of native coronary artery without angina pectoris; M79.605 Pain in left leg; M79.606 Pain in leg, unspecified; Z79.899 Other long term (current) drug therapy
CPT/HCPCS: 36000; 36415; 70450; 71045; 80053; 80307; 81001; 82550; 82962; 83036; 83605; 83735; 84484; 85025; 85610; 85730; 93005; 93041; 93268; 94760; 96360; 96361; 99285; G0378; G0480; A9270-GY

== ENCOUNTER 2019-08-20 10:43 | Emergency (ER) | payer OTHER ==
[2019-08-20 11:08] LABS: INR 0.96 (0.8-3.0); PROTIME 10.8 SECONDS (8.83-12.87)
[2019-08-20 11:09] LABS: Absolute Neutrophil Ct (ANC) 5.33 (1.4-6.9); BASOPHIL % 0.4 % (0.0-0.4); Basophil (Absolute #) 0.03 (0-0.4); Eosinophil % 3.7 % (0.00-5.0); Eosinophil (Absolute #) 0.31 (0-0.5); Hemoglobin 18.3 gm/dl (12.5-18.0); Lymphocytes % 24.2 % (24.0-44.0); Mean Corpuscular Hemoglobin 31.3 pg (26-32); Mean Corpuscular Hgb Concent. 35.2 g/dl (32-36); Mean Platelet Volume 9.6 fl (7.5-11.0); Monocytes % 7.3 % (0.0-12.0); Neutrophil % 64.4 % (36.0-66.0); Platelet Count 208 K/mm3 (150-450); Red Blood Count 5.84 M/mm3 (4.1-5.6); Red Cell Distribution Width 12.8 % (11.5-14.0); White Blood Count 8.3 K/mm3 (4.0-10.5)
[2019-08-20 11:10] LABS: PTT 37.6 SECONDS (24.1-36.1)
--- NOTE | 2019-08-20 11:10 | ERPHSYRPT ---
- History of Present Illness Time Seen by Provider: 08/20/19 10:58 Source: patient Exam Limitations: no limitations Patient Subjective Stated Complaint: Patient c/o confustion, rt. U/LE weakness, numbness and abnormal gait. Hx of stroke Physician History: Patient awoke yesterday morning with c/o rt. U/LE weakness, numbness and unstable gait. Family confirms that "something is wrong" Timing/Duration: yesterday Severity: moderate Character of Deficits: new weakness, altered sensation, RLE, RUE Deficits: off balance, decrease ability to walk, weak Baseline/Normal Cognition: alert oriented x 3 Current Cognition: alert but confused Baseline Gait: walks w/o assistance Associated Symptoms: confusion, weakness, numbness/tingling in legs/feet, trouble walking, No fever, No chills, No loss of consciousness, No nausea, No vomiting Allergies/Adverse Reactions: No Known Drug Allergies Allergy (Verified 08/20/19 11:02) Home Medications: Atenolol 25 mg PO DAILY 02/10/19 [History] Duloxetine HCl [Cymbalta] 60 mg PO DAILY 02/10/19 [History] Fenofibrate 48 mg PO DAILY 02/10/19 [History] Finasteride 5 mg [Proscar 5 MG] 5 mg PO HS 02/10/19 [History] Gabapentin 600 mg PO BID 02/10/19 [History] Gabapentin [Neurontin] 200 mg PO LUNCH 02/10/19 [History] Insulin Aspart [Novolog] 3 unit SQ AC 02/10/19 [History] Insulin Glargine,Hum.rec.anlog [Lantus] 50 unit SQ BID 02/10/19 [History] Meclizine HCl 25 mg [Antivert 25 mg] 25 mg PO TID 02/10/19 [History] Nortriptyline HCl [Pamelor] 30 mg PO HS 02/10/19 [History] [place]-3 Fatty Acids/Fish Oil [Fish Oil 1,000 mg Capsule] 1,000 mg PO BID [History] Pravastatin Sodium 80 mg PO HS 02/10/19 [History] Hx Tetanus, Diphtheria Vaccination/Date Given: Yes Hx Influenza Vaccination/Date Given: No Hx Pneumococcal Vaccination/Date Given: No - Review of Systems Constitutional: No Fever, No Chills Eyes: No Symptoms Ears, Nose, & Throat: No Symptoms Respiratory: No Cough, No Dyspnea Cardiac: No Chest Pain, No Edema, No Syncope Abdominal/Gastrointestinal: No Abdominal Pain, No Nausea, No Vomiting, No Diarrhea Genitourinary Symptoms: No Dysuria Musculoskeletal: No Back Pain, No Neck Pain Skin: No Rash Neurological: Focal Weakness, Gait Changes, No Dizziness, No Sensory Changes Psychological: No Symptoms Endocrine: No Symptoms All Other Systems: Reviewed and Negative - Past Medical History Pertinent Past Medical History: Yes Neurological History: Seizures, Stroke, TIA ENT History: No Pertinent History Cardiac History: Coronary Artery Disease, High Cholesterol, Hypertension, Myocardial Infarction ([place]) Respiratory History: No Pertinent History Endocrine Medical History: Diabetes Type II Musculoskeletal History: No Pertinent History GI Medical History: No Pertinent History History: No Pertinent History Psycho-Social History: Depression Male Reproductive Disorders: No Pertinent History - Past Surgical History Past Surgical History: No Neuro Surgical History: No Pertinent History Respiratory: No Pertinent History, Lobectomy Gastrointestinal: No Pertinent History Genitourinary: No Pertinent History Musculoskeletal: No Pertinent History Male Surgical History: No Pertinent History Other Surgical History: cardiac cath - Social History Smoking Status: Current every day smoker How long have you smoked: 50 Exposure to second hand smoke: Yes Alcohol Use: None Drug Use: none Patient Lives Alone: No Significant Family History: diabetes, hypertension - Nursing Vital Signs Nursing Vital Signs: Initial Vital Signs Pulse Rate 80 08/20/19 11:03 Respiratory Rate 16 08/20/19 11:03 Blood Pressure 193/99 08/20/19 11:03 O2 Sat by Pulse Oximetry 98 08/20/19 11:03 Pain Scale Pain Intensity 0 - [place] Coma Scale Best Eye Response ([place]): (4) open spontaneously Best Verbal Response ([place]): (5) oriented Best Motor Response ([place]): (6) obeys commands [place] Total: 15 - Physical Exam General Appearance: no apparent distress, alert Eye Exam: bilateral eye: PERRL, EOMI Ears, Nose, Throat Exam: normal ENT inspection, moist mucous membranes Neck Exam: normal inspection, non-tender, supple Respiratory: normal breath sounds, lungs clear, airway intact, No respiratory distress Cardiovascular: regular rate/rhythm, No edema Gastrointestinal: soft, No tenderness, No distention Back Exam: normal inspection Extremity Exam: normal inspection, No pedal edema Mental Status: alert, 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 U/LE. Strength improved, now feels weak again. ) Motor/Sensory: weak motor strength RUE, weak motor strength RLE Skin Exam: normal color, warm, dry, No rash SpO2 Interpretation: normal SpO2: 95 O2 Delivery: Room Air - Course EKG Interpreted by Me: RATE, NORMAL AXIS, NORMAL ST-T Rhythm Strip: Rate - CT Exams Head CT Interpretation: Discussed w/radiologist, Tele-radiologist Report (Discussed with Dr. Madrid of neurology who confirms findings. ) Ordered Tests: Active Orders 24 hr Category Date Time Status Accucheck STAT Care 08/20/19 10:58 Active IV Insertion STAT Care 08/20/19 10:58 Active NPO (ED) STAT Care 08/20/19 11:02 Active Pulse Oximetry (ED) STAT Care 08/20/19 10:58 Active CHEST 1 VIEW (PORTABLE) Stat Exams 08/20/19 11:02 Completed HEAD WITHOUT CONTRAST [CT] Stat Exams 08/20/19 10:52 Completed CBC W DIFF Stat Lab 08/20/19 10:58 Completed CMP Stat Lab 08/20/19 11:00 Completed PROTIME WITH INR Stat Lab 08/20/19 11:00 Completed PTT Stat Lab 08/20/19 11:00 Completed TROPONIN Q3H Lab 08/20/19 11:30 Completed TROPONIN Q3H Lab 08/20/19 15:06 Received TROPONIN Q3H Lab 08/20/19 17:30 Ordered TROPONIN Q3H Lab 08/20/19 20:30 Ordered TROPONIN Q3H Lab 08/20/19 23:30 Ordered UA W/RFX UR CULTURE Stat Lab 08/20/19 14:24 Completed Medication Summary Generic Name Dose Route Start Last Admin Trade Name Freq PRN Reason Stop Dose Admin Sodium Chloride 1,000 mls @ 75 mls/hr 08/20/19 13:00 08/20/19 13:54 Sodium Chloride 0.9% 1000 Ml IV 09/19/19 12:59 75 mls/hr .[id number] ZEINA Administration Discontinued Medications Generic Name Dose Route Start Last Admin Trade Name Freq PRN Reason Stop Dose Admin Aspirin 325 mg 08/20/19 22:00 Ecotrin 325 Mg PO 09/19/19 21:59 HS ZEINA Aspirin 324 mg 08/20/19 13:23 08/20/19 13:53 Baby Aspirin 81 Mg Chew PO 08/20/19 13:24 324 mg STAT ONE Administration Aspirin Confirm 08/20/19 13:27 Baby Aspirin 81 Mg Chew Administered 08/20/19 13:28 Dose 81 mg .ROUTE .STK-MED ONE Lab/Rad Data: Laboratory Result Diagrams 08/20/19 10:58 08/20/19 11:00 Laboratory Results 08/20/19 08/20/19 08/20/19 Range/Units 14:24 11:30 11:00 WBC (4.0-10.5) K/mm3 RBC (4.1-5.6) M/mm3 Hgb (12.5-18.0) gm/dl Hct (42-50) % MCV (78-100) fl MCH (26-32) pg MCHC (32-36) g/dl RDW (11.5-14.0) % Plt Count (150-450) K/mm3 MPV (7.5-11.0) fl Gran % (36.0-66.0) % Eos # (Auto) (0-0.5) Absolute Lymphs (auto) (1.0-4.6) Absolute Monos (auto) (0.0-1.3) Lymphocytes % (24.0-44.0) % Monocytes % (0.0-12.0) % Eosinophils % (0.00-5.0) % Basophils % (0.0-0.4) % Absolute Granulocytes (1.4-6.9) Basophils # (0-0.4) PT 10.8 (8.83-12.87) SECONDS INR 0.96 (0.8-3.0) APTT 37.6 H (24.1-36.1) SECONDS Sodium (137-145) mmol/L Potassium (3.5-5.1) mmol/L Chloride (98-107) mmol/L Carbon Dioxide (22-30) mmol/L Anion Gap (5-15) MEQ/L BUN (9-20) mg/dL Creatinine (0.66-1.25) mg/dL Estimated GFR ML/MIN Glucose (74-106) mg/dL Calcium (8.4-10.2) mg/dL Total Bilirubin (0.2-1.3) mg/dL AST (17-59) U/L ALT (0-50) U/L Alkaline Phosphatase (38-126) U/L Troponin I < 0.012 (0.000-0.034) ng/mL Serum Total Protein (6.3-8.2) g/dL Albumin (3.5-5.0) g/dL Urine Color YELLOW (YELLOW) Urine Appearance CLEAR (CLEAR) Urine pH 6.0 (5-6) Ur Specific [place] 1.020 (1.005-1.025) Urine Protein 100 (Negative) Urine Ketones NEGATIVE (NEGATIVE) Urine Blood NEGATIVE (0-5) Kei/ul Urine Nitrite NEGATIVE (NEGATIVE) Urine Bilirubin NEGATIVE (NEGATIVE) Urine Urobilinogen 2 (0-1) mg/dL Ur Leukocyte Esterase NEGATIVE (NEGATIVE) Urine WBC (Auto) NONE (0-5) /HPF Urine RBC (Auto) 0-2 (0-2) /HPF U Epithel Cells (Auto) NONE (FEW) /HPF Urine Bacteria (Auto) NONE (NEGATIVE) /HPF Urine Mucus (Auto) SLIGHT (NEGATIVE) /HPF Urine Culture Reflexed NO (NO) Urine Glucose >=500 (NEGATIVE) mg/dL 08/20/19 08/20/19 Range/Units 11:00 10:58 WBC 8.3 (4.0-10.5) K/mm3 RBC 5.84 H (4.1-5.6) M/mm3 Hgb 18.3 H (12.5-18.0) gm/dl Hct 52.0 H (42-50) % MCV 89.0 (78-100) fl MCH 31.3 (26-32) pg MCHC 35.2 (32-36) g/dl RDW 12.8 (11.5-14.0) % Plt Count 208 (150-450) K/mm3 MPV 9.6 (7.5-11.0) fl Gran % 64.4 (36.0-66.0) % Eos # (Auto) 0.31 (0-0.5) Absolute Lymphs (auto) 2.00 (1.0-4.6) Absolute Monos (auto) 0.60 (0.0-1.3) Lymphocytes % 24.2 (24.0-44.0) % Monocytes % 7.3 (0.0-12.0) % Eosinophils % 3.7 (0.00-5.0) % Basophils % 0.4 (0.0-0.4) % Absolute Granulocytes 5.33 (1.4-6.9) Basophils # 0.03 (0-0.4) PT (8.83-12.87) SECONDS INR (0.8-3.0) APTT (24.1-36.1) SECONDS Sodium 142 (137-145) mmol/L Potassium 4.1 (3.5-5.1) mmol/L Chloride 104 (98-107) mmol/L Carbon Dioxide 30 (22-30) mmol/L Anion Gap 12.2 (5-15) MEQ/L BUN 25 H (9-20) mg/dL Creatinine 1.27 H (0.66-1.25) mg/dL Estimated GFR > 60.0 ML/MIN Glucose 143 H (74-106) mg/dL Calcium 9.5 (8.4-10.2) mg/dL Total Bilirubin 0.80 (0.2-1.3) mg/dL AST 34 (17-59) U/L ALT 37 (0-50) U/L Alkaline Phosphatase 82 (38-126) U/L Troponin I (0.000-0.034) ng/mL Serum Total Protein 8.5 H (6.3-8.2) g/dL Albumin 4.7 (3.5-5.0) g/dL Urine Color (YELLOW) Urine Appearance (CLEAR) Urine pH (5-6) Ur Specific [place] (1.005-1.025) Urine Protein (Negative) Urine Ketones (NEGATIVE) Urine Blood (0-5) Kei/ul Urine Nitrite (NEGATIVE) Urine Bilirubin (NEGATIVE) Urine Urobilinogen (0-1) mg/dL Ur Leukocyte Esterase (NEGATIVE) Urine WBC (Auto) (0-5) /HPF Urine RBC (Auto) (0-2) /HPF U Epithel Cells (Auto) (FEW) /HPF Urine Bacteria (Auto) (NEGATIVE) /HPF Urine Mucus (Auto) (NEGATIVE) /HPF Urine Culture Reflexed (NO) Urine Glucose (NEGATIVE) mg/dL - Progress Progress Note: 08/20/19 13:01 Patient reassessed. Neuro exam remains unchanged. 08/20/19 15:[address] Barger hospitalist at [facility] who accepts transfer. Dr. Madrid of neurology will be on consult. Discussed with Dr.: Other (Julius of neurology) Counseled pt/family regarding: lab results, diagnosis, rad results - Departure Departure Disposition: Home (brandie stroke) Clinical Impression: Polycythemia, Left pontine stroke Condition: Fair Critical Care Time: No Referrals: [facility]OSP[facility],'[facility] [Primary Care Provider] -
[2019-08-20 11:14] LABS: ALBUMIN 4.7 g/dL (3.5-5.0); ALKALINE PHOSPHATASE 82 U/L (38-126); ANION GAP 12.2 MEQ/L (5-15); BLOOD UREA NITROGEN 25 mg/dL (9-20); CHLORIDE 104 mmol/L (98-107); Calcium 9.5 mg/dL (8.4-10.2); Carbon Dioxide 30 mmol/L (22-30); Creatinine 1 1.27 mg/dL (0.66-1.25); Glucose 143 mg/dL (74-106); Potassium 4.1 mmol/L (3.5-5.1); SGOT/AST 34 U/L (17-59); SGPT/ALT 37 U/L (0-50); SODIUM 142 mmol/L (137-145); Total Protein 8.5 g/dL (6.3-8.2)
--- NOTE | 2019-08-20 11:21 | XRAY ---
Indication: Confusion. History of stroke. Multiple contiguous axial images obtained through the head without contrast. Comparison: February 10, 2019. Again age-appropriate global atrophy, minimal periventricular degenerative micro-ischemia, remote appearing left basal ganglia lacunar infarct, and remote-appearing left posterior parietal infarct. Brainstem demonstrates new 8 mm round hypodensity at the level of brandie, possible ischemia in the right clinical setting. No acute intracranial hemorrhage, hydrocephalus, or mass effect. Fourth ventricle is midline. Bony calvarium intact. There is again minimal/mild mucosal thickening of the paranasal sinuses bilaterally without fluid leveling. Mastoid air cells are clear. Impression: 1. New subcentimeter brainstem hypodensity possibly evolving ischemia in the right clinical setting. No acute hemorrhage/mass effect. MRI may yield further information. 2. Stable atrophy, degenerative micro-ischemia, remote left basal ganglia lacunar infarct, and remote left parietal infarct. 3. Again incidental paranasal sinus disease.
--- NOTE | 2019-08-20 11:23 | XRAY ---
Indication: Pneumonia. Comparison: February 10, 2019. Portable chest again demonstrates normal heart and lungs with incidental right base calcified granuloma and left costophrenic angle fibrosis/scarring. Bony thorax intact. No new/acute findings.
[2019-08-20] MEDS ORDERED: Sodium Chloride 0.9% 1000 ML 1,000 ML IV SCH (13:00)
[2019-08-20] MEDS ORDERED: Sodium Chloride 0.9% 1000 ML 1,000 ML ONE (13:21)
[2019-08-20] MEDS ORDERED: BABY ASPIRIN 81 MG CHEW PO ONE (13:23)
[2019-08-20] MEDS ORDERED: BABY ASPIRIN 81 MG CHEW ONE (13:27)
[2019-08-20 14:52] LABS: Appearance CLEAR (CLEAR); Bilirubin NEGATIVE (NEGATIVE); Blood NEGATIVE Ery/ul (0-5); Glucose >=500 mg/dL (NEGATIVE); Ketones NEGATIVE (NEGATIVE); Leukocyte Esterase NEGATIVE (NEGATIVE); Mucus SLIGHT /HPF (NEGATIVE); Nitrite NEGATIVE (NEGATIVE); Protein,Urine Dip 100 (Negative); RBC 0-2 /HPF (0-2); Urobilinogen 2 mg/dL (0-1)
[2019-08-20 17:34] VITALS: BP 171/95; PULSE 82; O2SAT 97
[2019-08-20] MEDS ORDERED: Ecotrin 325 MG PO SCH (22:00)
== END 2019-08-20 17:34 | disposition short-term general hospital (02) ==
LOC: ED 10:43
DX: D75.1 Secondary polycythemia (principal); G93.89 Other specified disorders of brain; I25.10 Atherosclerotic heart disease of native coronary artery without angina pectoris; E78.00 Pure hypercholesterolemia, unspecified; I10 Essential (primary) hypertension; E11.9 Type 2 diabetes mellitus without complications; Z79.4 Long term (current) use of insulin; Z86.73 Personal history of transient ischemic attack (TIA), and cerebral infarction without residual deficits; Z79.899 Other long term (current) drug therapy; I25.2 Old myocardial infarction; F32.9 Major depressive disorder, single episode, unspecified
CPT/HCPCS: 36000; 36415; 70450; 71045; 80053; 81001; 82962; 84484; 85025; 85610; 85730; 93005; 94760; 96360; 96361; 99284; A9270-GY